=== PATIENT | female | born 1970 | race Caucasian/White ===

== ENCOUNTER 2021-07-18 10:50 | Day surgery (SDC) | payer MEDICAID ==
[~2021-07-18] VITALS: Ht 160 cm; Wt 136.4 kg
[~2021-07-18 10:50] MED LIST: ALBUTEROL MDI INH; ALBUTEROL NEB IH; CETI10CA PO; DESV100T PO; FLUT1BLS3 PO; LEVOTHYROXINE PO; LORAZEPAM PO; MELO-102 PO; OMEPRAZOLE; RANI300C PO
[2021-07-18 11:02] VITALS: BP 105/71
[2021-07-18] MEDS ORDERED: fentaNYL/PF 50MCG/1 ML 2ML syringe ONE ×2 (11:46→12:38)
[2021-07-18] MEDS ORDERED: MIDAZolam 1 MG/ML 5ML VIAL ONE (11:46)
[2021-07-18] MEDS ORDERED: LIDOcaine Viscous 15ml cup ONE (11:46)
[2021-07-18] MEDS ORDERED: MONT-40 PO (11:47)
[2021-07-18] MEDS ORDERED: CLON0.1T2 (11:47)
[2021-07-18] MEDS ORDERED: LORA10TA7 PO (11:48)
[2021-07-18] MEDS ORDERED: LAMO25TA23 PO (11:48)
[2021-07-18] MEDS ORDERED: CHOL20002 PO (11:49)
[2021-07-18 13:00] VITALS: BP 116/65
[2021-07-18 13:10] VITALS: BP 112/71
[2021-07-18 13:20] VITALS: BP 117/71
[2021-07-18 13:30] VITALS: BP 112/71
== END 2021-07-18 13:30 | disposition home or self-care (01) ==
LOC: GI LAB 10:50
PROVIDERS: ATTEND Internal Medicine Gastroenterology
DX: R12 Heartburn (principal); K21.9 Gastro-esophageal reflux disease without esophagitis; K44.9 Diaphragmatic hernia without obstruction or gangrene; K29.60 Other gastritis without bleeding; J45.909 Unspecified asthma, uncomplicated; E66.9 Obesity, unspecified; Z68.43 Body mass index [BMI] 50.0-59.9, adult; Z88.2 Allergy status to sulfonamides; Z88.8 Allergy status to other drugs, medicaments and biological substances; F12.90 Cannabis use, unspecified, uncomplicated; Z79.899 Other long term (current) drug therapy
CPT/HCPCS: 43239; 99152; J2250; J3010; J7040; Z7512; 99153; A4620

== ENCOUNTER 2022-07-05 13:59 | Emergency (ER) | payer MEDICAID ==
[~2022-07-05] VITALS: Ht 160 cm; Wt 127.3 kg
[~2022-07-05 13:59] MED LIST changes: -ALBUTEROL MDI INH; -ALBUTEROL NEB IH; -CETI10CA PO; +CHOL20002 PO; +CLON0.1T2; -DESV100T PO; -FLUT1BLS3 PO; +LAMO25TB3 PO; +LORA10TA7 PO; -MELO-102 PO; +MONT-40 PO; -RANI300C PO
[2022-07-05 14:39] VITALS: BP 143/88
== END 2022-07-05 16:27 | disposition home or self-care (01) ==
LOC: ER 14:00
DX: S89.92XA Unspecified injury of left lower leg, initial encounter (principal); J45.909 Unspecified asthma, uncomplicated; K21.9 Gastro-esophageal reflux disease without esophagitis; G89.29 Other chronic pain; F12.90 Cannabis use, unspecified, uncomplicated; Z88.2 Allergy status to sulfonamides; Z56.0 Unemployment, unspecified; W19.XXXA Unspecified fall, initial encounter; Y93.89 Activity, other specified; Y92.89 Other specified places as the place of occurrence of the external cause; Y99.8 Other external cause status
CPT/HCPCS: 73564; 99283